=== PATIENT | male | born 1995 | race Asian ===

== ENCOUNTER 2016-09-22 11:34 | Emergency (ER) | payer OTHER ==
[~2016-09-22] VITALS: Ht 172.7 cm; Wt 77.9 kg
[2016-09-22 11:42] VITALS: TEMP 36.5; Ht 172.7 cm; Wt 77.9 kg
[2016-09-22] MEDS ORDERED: MoRPHine SULFATE 4 MG/ML 1 ML CARP\\VIAL IV STA (11:56)
[2016-09-22] MEDS ORDERED: SODIUM CHLORIDE 0.9% 1000ML 1,000 ML IV STA (11:56)
[2016-09-22] MEDS ORDERED: ONDANSETRON INJ 2 MG/ML 2 ML VIAL IV STA (11:56)
--- NOTE | 2016-09-22 12:02 | EMERGENCY ROOM VISIT NOTE ---
History First contact with patient: 11:47 Chief Complaint: VOMITING Stated Complaint: VOMITING, FEVER, STOMACH PAINS History of Present Illness The patient is a 21 year old male who presents to the Emergency Room via private vehicle with complaints of "vomiting, fever, stomach pains". The patient states that yesterday around 8 PM he was at home and woke up from a nap experiencing severe right upper quadrant abdominal pain and headache. He then vomited twice. He has had this same chronologic episode for 5 times since 8 PM last evening. There has been associated body aches and chills. The headache is rated as a 10/10, but the patient notes she has a long headache history and this is a typical migraine for him which he points to the left side of his head in the occipital region as its location. In regard to the abdominal pain, he points to the right upper quadrant and states it feels like a "hot ball of lead ". In his right upper quadrant. He rates this pain as an 8-9/10. He has tried Tylenol around 2:30 AM without relief. He has not had and eat since last night. The patient does not have any history of gallbladder issues in the past. The patient did receive his flu shot and he notes that his remained does have the same symptoms as he has today. The patient denies any hematemesis or blood in the stool. There is no associated cough. He denies any chest pain or shortness of breath. Review of Systems A complete 10-point Review of Systems was discussed with the patient, with pertinent positives and negatives listed in the History of Present Illness. All remaining Review of Systems questions can be considered negative unless otherwise specified. Past Medical/Surgical History Medical Problems: (1) Migraines Family History No pertinent family history Unremarkable Social History Smoking Status: Never Smoker Alcohol Use: occasionally Drug Use: none Marital Status: single Housing Status: lives with roommate Occupation Status: employed, [employer] student Current/Historical Medications No Active Prescriptions or Reported Meds Allergies Coded Allergies: No Known Allergies (Unverified , 09/22/16) Physical Exam Vital Signs Date Time Temp Pulse Resp B/P Pulse Ox O2 Delivery O2 Flow Rate FiO2 09/22/16 18:07 72 20 122/72 97 09/22/16 16:54 72 20 109/54 97 Room Air 09/22/16 15:07 90 20 111/63 98 Room Air 09/22/16 13:05 92 20 128/62 98 Room Air 09/22/16 12:08 89 20 124/67 98 Room Air 09/22/16 11:42 36.5 127 18 122/61 100 Room Air Physical Exam VITAL SIGNS - Vital signs and nursing notes were reviewed. Patient is afebrile , normotensive, he is tachycardic at a rate of 127 bpm, but he is saturating well on room air at 100%. GENERAL -21-year-old male appearing his stated age who is in no acute distress. Communicates well with provider and answers questions appropriately. SKIN - Without rashes. HEAD - NC/AT. EYES - PERRL with EOMI bilaterally. Sclera anicteric. Palpebral conjunctiva pink and moist with no injection noted. EARS - No deformities of external structures noted on gross examination bilaterally. No hemotympanum. External auditory canals without discharge or otorrhea. Tympanic membranes pearly lundberg without retraction or bulging. No fluid or purulent material visualized behind the TM. Handle of malleus, umbo, cone of light, pars tensa/flaccid all easily visualized. NOSE - Midline and without cyanosis. No epistaxis or purulent drainage noted. Septum midline without deviation or septal hematoma noted. MOUTH/OROPHARYNX - Without perioral cyanosis. Buccal mucosa pink and moist and without leukoplakia. Tongue midline with equal elevation of palate bilaterally. No tonsillar hypertrophy, erythema, or exudates noted. Fair dentition noted. NECK - Neck with FROM. Supple to palpation. No lymphadenopathy noted. No nuchal rigidity. There is no signs of meningitis or encephalitis upon exam. LUNGS - Chest wall symmetric without accessory muscle use, intercostals retractions, or central cyanosis. Normal vesicular breath sounds CTA B/L. No wheezes, rales, or rhonchi appreciated. CARDIAC - RRR with S1/S2. No murmur, rubs, or gallops appreciated. ABDOMEN - Abdominal contour without pulsations or visible masses. BS normoactive all four quadrants. There is right upper quadrant tenderness. The patient is flexing his abdominal muscles during the exam. The abdomen is otherwise soft and nonrigid. There is no tenderness in the right lower quadrant or left upper quadrant. There is slight tenderness in the left lower. No palpable masses, hepatosplenomegaly, or ascites noted. EXTREMITIES - No clubbing or peripheral cyanosis. No pretibial edema present. +5 /5 strength noted in UE/LE bilaterally. NEUROLOGIC - Cranial nerves II through XII grossly intact. Sensory intact to light touch throughout. PSYCH - A&Ox3 and cooperates fully with examiner. Pt is very pleasant and interacts well with examiner. Medical Decision & Procedures ER Provider Diagnostic Interpretation: ABDOMINAL ULTRASOUND, RIGHT UPPER QUADRANT HISTORY: Right upper quadrant abdominal pain.. COMPARISON: None. FINDINGS: Pancreas: Obscured by overlying bowel gas. Liver: Unremarkable. Gallbladder: No gallbladder wall thickening. No gallstones. CBD: 4 mm. Right kidney: No hydronephrosis. IMPRESSION: 1. Normal gallbladder. No gallstones. 2. The pancreas is obscured by overlying bowel gas. Electronically signed by: Brayan Orourke M.D. 09/22/2016 2:01 PM Dictated Date/Time: 09/22/2016 2:00 PM Laboratory Results 09/22/16 12:00 Red Blood Count 5.47, Mean Corpuscular Volume 85.7, Mean Corpuscular Hemoglobin 29.8, Mean Corpuscular Hemoglobin Concent 34.8, Mean Platelet Volume 8.9, Neutrophils (%) (Auto) 92.2, Lymphocytes (%) (Auto) 2.7, Monocytes (%) (Auto) 4.7, Eosinophils (%) (Auto) 0.1, Basophils (%) (Auto) 0.1, Neutrophils # (Auto) 9.50, Lymphocytes # (Auto) 0.28, Monocytes # (Auto) 0.48, Eosinophils # (Auto) 0.01, Basophils # (Auto) 0.01 09/22/16 12:00 Test 09/22/16 12:00 09/22/16 13:05 White Blood Count 10.30 K/uL (4.8-10.8) Red Blood Count 5.47 M/uL (4.7-6.1) Hemoglobin 16.3 g/dL (14.0-18.0) Hematocrit 46.9 % (42-52) Mean Corpuscular Volume 85.7 fL (80-100) Mean Corpuscular Hemoglobin 29.8 pg (25-34) Mean Corpuscular Hemoglobin Concent 34.8 g/dl (32-36) Platelet Count 310 K/uL (130-400) Mean Platelet Volume 8.9 fL (7.4-10.4) Neutrophils (%) (Auto) 92.2 % Lymphocytes (%) (Auto) 2.7 % Monocytes (%) (Auto) 4.7 % Eosinophils (%) (Auto) 0.1 % Basophils (%) (Auto) 0.1 % Neutrophils # (Auto) 9.50 K/uL (1.4-6.5) Lymphocytes # (Auto) 0.28 K/uL (1.2-3.4) Monocytes # (Auto) 0.48 K/uL (0.11-0.59) Eosinophils # (Auto) 0.01 K/uL (0-0.5) Basophils # (Auto) 0.01 K/uL (0-0.2) RDW Standard Deviation 38.8 fL (36.4-46.3) RDW Coefficient of Variation 12.3 % (11.5-14.5) Immature Granulocyte % (Auto) 0.2 % Immature Granulocyte # (Auto) 0.02 K/uL (0.00-0.02) Anion Gap 11.0 mmol/L (3-11) Est Creatinine Clear Calc Drug Dose 112.1 ml/min Estimated GFR () 123.3 Estimated GFR (Non- 106.4 BUN/Creatinine Ratio 24.0 (10-20) Calcium Level 9.1 mg/dl (8.5-10.1) Total Bilirubin 1.6 mg/dl (0.2-1) Aspartate Amino Transf (AST/SGOT) 20 U/L (15-37) Alanine Aminotransferase (ALT/SGPT) 27 U/L (12-78) Alkaline Phosphatase 81 U/L (45-117) Total Creatine Kinase 290 U/L (39-308) Total Protein 7.7 gm/dl (6.4-8.2) Albumin 4.4 gm/dl (3.4-5.0) Globulin 3.3 gm/dl (2.5-4.0) Albumin/Globulin Ratio 1.3 (0.9-2) Amylase Level 44 U/L (25-115) Lipase 109 U/L (73-393) Influenza Type A Antigen Neg for Influ A (NEG) Influenza Type B Antigen Neg for Influ B (NEG) Medications Administered Medications (Trade) Dose Ordered Sig/Gatito Route Start Time Stop Time Status Last Admin Dose Admin Sodium Chloride (Nss 1000ml) 1,000 ml @ 999 mls/hr Q1H1M STAT IV 09/22/16 11:56 09/22/16 12:56 DC 09/22/16 12:03 999 MLS/HR Morphine Sulfate (MoRPHine SULFATE INJ) 4 mg NOW STAT IV 09/22/16 11:56 09/22/16 11:58 DC 09/22/16 12:03 4 MG Ondansetron HCl (Zofran Inj) 4 mg NOW STAT IV 09/22/16 11:56 09/22/16 11:58 DC 09/22/16 12:02 4 MG Ketorolac Tromethamine (Toradol Inj) 30 mg STK-MED ONCE .ROUTE 09/22/16 16:58 09/22/16 16:59 DC 09/22/16 17:02 30 MG Medical Decision Patient was evaluated as above. After obtaining a thorough history and physical examination IV access was obtained and a CBC, CMP, influenza swab, 1 L normal saline as well as a right upper quadrant ultrasound. The patient is presenting with symptoms identical to when his roommate is experiencing which I feel is likely is a viral gastroenteritis. The patient may also have acute cholecystitis based upon exam or pancreatitis therefore appropriate workup began. CBC did not reveal any leukocytosis or anemia. Slight elevation of neutrophils. CMP didn't reveal any electrolyte abnormality. The BUN was elevated which I believe is secondary to dehydration. Total bilirubin was elevated at 1.6. These findings were discussed with the patient. Flu was negative. Right upper quadrant ultrasound was unremarkable. Patient was reevaluated and noted he was feeling much better and the abdominal pain at subsided. He stated that he has a headache that is not the worst headache of his life but is similar to previous migraines. The pain is in the same location. I gave him 30 mg of Toradol after verifying he had not had any NSAIDs or renal impairment today. He was reevaluated and noted to be feeling much better. Patient felt that he was able to go home. I do not suspect any emergent or surgical nature to the patient's pain at this time. He was instructed to follow-up with [facility] regarding these findings. He was educated on worrisome symptoms in which to return. He had questions prior to discharge and was discharged home in good condition. In the evaluation and treatment of this patient following differential diagnoses were entertained: Cholecystitis, choledocholithiasis, pancreatitis, acute viral gastroenteritis, influenza, among others. Impression Primary Impression: Vomiting Additional Impressions: Right upper quadrant abdominal pain, Migraines Departure Information Dispostion Home / Self-Care Condition GOOD Prescriptions No Active Prescriptions or Reported Meds Referrals No Doctor, Assigned (PCP) Patient Instructions A Signature Page, My [facility] Additional Instructions You were seen in emergency department for right upper quadrant abdominal pain. Please drink plenty of fluids and rest. Imaging and blood work and has ruled out any emergent or surgical nature to this pain at this time. Please follow-up with [facility] regarding today's visit for recheck. Your bilirubin was slightly elevated today at 1.6. BUN was 24. These are nonemergent findings but should be followed up with your family doctor or [facility] as soon as possible. Please return to the emergency department with any new/concerning symptoms.
[2016-09-22 12:21] LABS: BASO % 0.1 %; BASO ABS # 0.01 K/uL (0-0.2); COMPLETE YES; EOS % 0.1 %; HEMATOCRIT 46.9 % (42-52); IG% 0.2 %; LYMPH % 2.7 %; LYMPH ABS # 0.28 K/uL (1.2-3.4); MEAN CELL VOLUME 85.7 fL (80-100); MEAN CORPUSCULAR HEMOGLOBIN 29.8 pg (25-34); MEAN CORPUSCULAR HGB CONC 34.8 g/dl (32-36); MEAN PLATELET VOLUME 8.9 fL (7.4-10.4); MONO % 4.7 %; NEUT % 92.2 %; PLATELET COUNT 310 K/uL (130-400); RED BLOOD COUNT 5.47 M/uL (4.7-6.1)
[2016-09-22 12:44] LABS: CALCIUM 9.1 mg/dl (8.5-10.1); POTASSIUM 3.7 mmol/L (3.5-5.1)
[2016-09-22 12:46] LABS: ALB/GLOB RATIO 1.3 (0.9-2)
--- NOTE | 2016-09-22 14:03 | DIAGNOSTIC IMAGING REPORT ---
ABDOMINAL ULTRASOUND, RIGHT UPPER QUADRANT HISTORY: Right upper quadrant abdominal pain.. COMPARISON: None. FINDINGS: Pancreas: Obscured by overlying bowel gas. Liver: Unremarkable. Gallbladder: No gallbladder wall thickening. No gallstones. CBD: 4 mm. Right kidney: No hydronephrosis. IMPRESSION: 1. Normal gallbladder. No gallstones. 2. The pancreas is obscured by overlying bowel gas. Electronically signed by: Brayan Orourke M.D. 09/22/2016 2:01 PM Dictated Date/Time: 09/22/2016 2:00 PM
[2016-09-22] MEDS ORDERED: KETOROLAC TROMETHAMINE 30 MG/ML VIAL ONE (16:58)
[2016-09-22] MEDS ORDERED: KETOROLAC TROMETHAMINE 30 MG/ML VIAL IV STA (16:59)
[2016-09-22 18:07] VITALS: BP 122/72; PULSE 72; O2SAT 97
== END 2016-09-22 18:09 | disposition home or self-care (01) ==
LOC: C.EDB 11:35 → C.EDC 18:09
DX: R11.10 Vomiting, unspecified (principal); R10.11 Right upper quadrant pain; G43.909 Migraine, unspecified, not intractable, without status migrainosus; E86.0 Dehydration

== ENCOUNTER 2017-01-19 13:33 | Emergency (ER) | payer OTHER ==
[~2017-01-19] VITALS: Ht 175.3 cm; Wt 81.2 kg
[2017-01-19 13:41] VITALS: BP 168/115; TEMP 36.6; Ht 175.3 cm; Wt 81.2 kg
[2017-01-19] MEDS ORDERED: XYLOCAINE 1%/SOD BICARB 20 ML VIAL INFIL ONE (14:00)
--- NOTE | 2017-01-19 14:13 | DIAGNOSTIC IMAGING REPORT ---
LEFT THUMB 3 VIEWS CLINICAL HISTORY: Left thumb pain status post trauma COMPARISON: None DISCUSSION: There is a nondisplaced oblique intra-articular fracture through the base of the distal phalanx. There is no dislocation. IMPRESSION: Nondisplaced oblique intra-articular fracture through the base of the distal phalanx Electronically signed by: Сергей Ortez M.D. 01/19/2017 2:12 PM Dictated Date/Time: 01/19/2017 2:11 PM
[2017-01-19] MEDS ORDERED: HYDR-5688 PO (15:32)
[2017-01-19 16:09] VITALS: PULSE 79; O2SAT 96
--- NOTE | 2017-01-19 21:31 | EMERGENCY ROOM VISIT NOTE ---
ED Visit Note First contact with patient: 13:44 Chief complaint: Right hand finger lacerations and left thumb pain HPI: This 21-year-old male presents for evaluation of a laceration of lacerations on his right little, ring, and long fingers as well as left thumb pain. The patient was at [employer] training this weekend. He and some other men were attempting to remove a large heavy box from a [employer] vehicle. The box was slippery due to the rain. It started to slide and he attempted to stop it. He sustained lacerations on his right long, ring, and little fingers. He states his left thumb was also jammed. Bleeding was controlled with pressure. He denies any numbness or tingling. No other complaints. Tetanus is believed to be up-to-date. Pain is 3/10. Right-hand dominant. Supplemental sheet was reviewed. Previous surgeries: None Medical history: Benign Current Medications: None Allergies: NKDA Tetanus: Within 10 years Family History: Noncontributory. Social History: member of [employer]. No tobacco use. Occasional EtOH use. REVIEW OF SYSTEM: HEENT: No dizziness, visual problems, hearing loss, or tinnitus. There is no difficulty swallowing and no oral lesions are present. PULMONARY: No cough, shortness of breath, sputum production or hemoptysis. CARDIOVASCULAR: No chest pain, palpitations, shortness of breath or peripheral edema. GASTROINTESTINAL: No diarrhea, constipation, nausea, vomiting, or abdominal pain. GENITOURINARY: No dysuria, frequency, urgency or nocturia. NEUROLOGIC: No weakness, muscle tenderness, epilepsy or history of neurological problems. MUSCULOSKELETAL: No history of joint tenderness/swelling. No history of arthritis or arthralgias. SKIN: No rashes or lesions. PSYCHIATRIC: No history of depression or mental illness. ENDOCRINE: No history of diabetes, thyroid disorders, or abnormal hair growth. Physical Exam: Vitals: Afebrile. Reviewed and filed in patient's chart General: Well-developed, well-nourished, young male, in no acute distress. Obvious discomfort. He is sitting on the bed. Alert and oriented. Skin: Warm and dry with good turgor. No rashes. No ecchymosis or erythema. The patient is not diaphoretic. No abrasions. The patient has a 1 cm laceration present on the tip of his right long finger pad. He has a superficial 1 cm skin abrasion on the dorsum of his ring finger will phalanx. There is also a 6 mm excoriation present on the flexor surface of his little finger PIP joint. Edema is present in the left thumb distal phalanx. Musculoskeletal: Has pain with palpation of the distal phalanx of the left thumb. There is intact motion to the IP joint but this does cause pain. No pain with palpation over the MCP joint. Intact function there. No pain with palpation over the rest of the left hand. Right hand evaluation reveals intact flexion and extension of each of the digits. FDS and FDP functions are clearly intact by isolation. No pain with palpation over the metacarpals or MCP joints. He does have discomfort with palpation of the other digits but it is mild. Neurologic: Gross sensation is intact across the hands and digits by soft touch. Data: Radiographic imaging obtained today of the left thumb shows a distal phalanx fracture with intra-articular extension. No significant displacement. Films were read by radiology. Impression: Left thumb nondisplaced intra-articular distal phalanx fracture. Right hand little, ring, and long finger lacerations Procedure: Informed oral consent was obtained for repair. Right long, ring, and little fingers were prepped with Betadine and draped with a sterile towel. Long finger was anesthetized using 4 mL 1% plain buffered lidocaine in a digital block. Thorough inspection was performed for all fingers. Ring and little finger lacerations are superficial and do not require anything other than cleansing and Triple Antibiotic ointment. The long finger pad injury has no foreign material. Thorough inspection was performed. Wound was irrigated using normal sterile saline under jet spray lavage. Wound was closed using 5-0 nylon. Excellent wound edge approximation was achieved. Hemostasis was achieved. Plan: Patient was educated regarding today's findings. Conservative care measures were discussed. Cleanse the wounds daily with soap and water and reapply a small amount of bacitracin. Ice and elevate intermittently as needed for discomfort. Tylenol and ibuprofen every 6 hours as needed for pain. Wound care handout was provided. Sutures out in 12 days. He may shower. Avoid soaking or swimming for two weeks. Return to the ER for any acute changes or signs of infection. The left thumb was splinted with a splint. He'll keep this in place at all times other than bathing. Follow-up with his orthopedist to be sure the intra-articular fragment has not shifted or migrated. Avoid any heavy lifting. He will need to have modified duty for the [employer]. He was reassured that I do not suspect tendon rupture or laceration. Problem List Medical Problems: (1) Migraines Status: Chronic Current/Historical Medications Scheduled PRN Hydrocodone/Acetaminophen 5MG/325MG ([place] 5MG/325MG), 1-2 TABLET PO Q6 PRN for Pain Allergies Coded Allergies: No Known Allergies (Unverified , 01/19/17) Vital Signs Date Time Temp Pulse Resp B/P Pulse Ox O2 Delivery O2 Flow Rate FiO2 01/19/17 16:09 79 16 96 01/19/17 13:41 36.6 82 18 168/115 97 Room Air Departure Information Impression Primary Impression: Laceration of finger of right hand Additional Impression: Fracture of thumb, closed Dispostion Home / Self-Care Prescriptions Hydrocodone/Acetaminophen 5MG/325MG ([place] 5MG/325MG) Tab 1-2 TABLET PO Q6 Y for Pain, #12 TAB For Initial Treatment Prov: Hu Hernández,P.A. 01/19/17 Forms WORK / SCHOOL INSTRUCTIONS, HOME CARE DOCUMENTATION FORM, Days to leave dressing on: 1 Clean wound with;: soap and water Number of times/day to clean wound: 1 Coat wound with: antibiotic ointment Suture removal in how many days: 12 MOTRIN USE, TYLENOL USE, WOUND CARE INSTRUCTIONS, IMPORTANT VISIT INFORMATION Patient Instructions My [facility] Additional Instructions Cleanse the wounds daily with soap and water Avoid swimming or soaking for 2 weeks you may shower and wash your hands Tylenol and Motrin every 6 hours as needed for discomfort Sutures out in 12 days Return to the ED for any acute changes or signs of infection. Keep the left thumb splint in place at all times other than bathing Follow-up with your PCP for orthopedic referral for your left thumb Ice and elevate the thumb frequently to reduce pain and swelling [place] one to 2 tablets every 6 hours as needed for severe pain-no driving Problem Qualifiers
== END 2017-01-19 16:11 | disposition home or self-care (01) ==
LOC: C.EDB 13:34 → C.EDD 16:11
DX: S62.502A Fracture of unspecified phalanx of left thumb, initial encounter for closed fracture (principal); S61.212A Laceration without foreign body of right middle finger without damage to nail, initial encounter; S61.214A Laceration without foreign body of right ring finger without damage to nail, initial encounter; S61.216A Laceration without foreign body of right little finger without damage to nail, initial encounter; W01.0XXA Fall on same level from slipping, tripping and stumbling without subsequent striking against object, initial encounter

== ENCOUNTER 2017-06-06 02:59 | Emergency (ER) | payer OTHER ==
[~2017-06-06] VITALS: Ht 175.3 cm; Wt 80.8 kg
[~2017-06-06 02:59] MED LIST: HYDR-5688 PO
[2017-06-06 03:09] VITALS: Ht 175.3 cm; Wt 80.8 kg
[2017-06-06] MEDS ORDERED: KETOROLAC TROMETHAMINE 60 MG/2 ML VIAL IM STA (03:29)
[2017-06-06] MEDS ORDERED: DIAZEPAM 5MG TAB PO STA (03:29)
--- NOTE | 2017-06-06 05:38 | EMERGENCY ROOM VISIT NOTE ---
History First contact with patient: 03:12 Chief Complaint: BACK PAIN Stated Complaint: LOWER BACK PAINS History of Present Illness The patient is a 22 year old male who presents to the Emergency Room with complaints of left low back pain which started this morning. The patient states that he has had issues with spasms in his low back in the past. He states that he has had spasms in the left lower back all day. He has had difficulty sleeping due to the pain. He is unable to find a comfortable position. The pain does not radiate anywhere. He denies any numbness/weakness of the legs, urinary symptoms or bowel/bladder incontinence. He rates his discomfort a 7/10. He has not taken any medication for the pain. Review of Systems A complete 10 point review of systems was reviewed with the patient with pertinent positives and negatives as per history of present illness. All else were negative. Past Medical/Surgical History Medical Problems: (1) Migraines Family History No pertinent family history Social History Smoking Status: Never Smoker Alcohol Use: occasionally Drug Use: none Marital Status: single Housing Status: lives with roommate Occupation Status: employed, [employer] student Current/Historical Medications No Active Prescriptions or Reported Meds Physical Exam Vital Signs Date Time Temp Pulse Resp B/P (MAP) Pulse Ox O2 Delivery O2 Flow Rate FiO2 06/06/17 05:45 37.1 80 14 117/57 97 06/06/17 04:40 80 14 117/57 97 Room Air 06/06/17 03:09 37.1 94 18 113/54 97 Room Air Physical Exam VITALS: Vitals are noted on the nurse's note and reviewed by myself. No abnormalities noted. GENERAL: This is a 22-year-old male, in no acute distress, nondiaphoretic, well- developed well-nourished. SKIN: The skin was without rashes, erythema, edema, or bruising. EYES: Pupils equal round and reactive to light and accommodation. NECK: Supple without nuchal rigidity. HEART: Regular rate and rhythm without murmurs gallops or rubs. LUNGS: Clear to auscultation bilaterally without wheezes, rales or rhonchi. ABDOMEN: Soft, nontender to palpation. MUSCULOSKELETAL: No muscle atrophy, erythema, or edema noted of the back. There is no tenderness over the lumbar spinous processes. The left lumbar paraspinal muscles are very firm and tender to palpation. The patient is slow to move around. Negative straight leg raise test. Strength 5/5 in bilateral lower extremities. NEURO: Patient was alert and oriented to person place and time. Normal sensation to light and sharp touch. Deep tendon reflexes 2+ in the lower extremities. Dorsalis pedis pulse 2+ bilaterally. Medical Decision & Procedures Medications Administered Medications (Trade) Dose Ordered Sig/Gatito Route Start Time Stop Time Status Last Admin Dose Admin Diazepam (Valium Tab) 5 mg NOW STAT PO 06/06/17 03:29 06/06/17 03:30 DC 06/06/17 03:39 5 MG Ketorolac Tromethamine (Toradol Inj) 60 mg NOW STAT IM 06/06/17 03:29 06/06/17 03:30 DC 06/06/17 03:39 60 MG ED Course The patient was evaluated as above. Patient was medicated with 5 mg Valium and 60 mg Toradol IM. Patient was reevaluated and felt much better. He was able to move without much pain at this time. Discharge instructions were reviewed with the patient. The patient verbalized understanding of my assessment and treatment plan and was discharged home in good condition. Medical Decision Differential diagnosis includes cauda equina syndrome, cord compression, disc herniation, muscle spasm, lumbar strain, epidural abscess, malignancy, transverse myelitis, urinary tract infection, colitis, diverticulitis, kidney stone, among others. The patient is a 22-year-old male who presents today complaining of left lower back pain. Exam is consistent with a lumbar muscle spasm. Patient was given Valium and Toradol with significant relief of symptoms. There is no tenderness over the lumbar spinous processes and I do not feel that imaging is necessary. Conservative measures were discussed with the patient. He was encouraged to follow-up with his primary care provider. Based on the patient's presentation and work up, I feel the patient is stable for outpatient treatment. The patient was educated to return to the emergency department for any worsening of their current condition or new/concerning symptoms. He will follow up with his PCP. Medication Reconcilliation Current Medication List: was personally reviewed by me Blood Pressure Screening Patient's blood pressure: Normal blood pressure Impression Primary Impression: Spasm of lumbar paraspinous muscle Departure Information Dispostion Home / Self-Care Condition GOOD Prescriptions No Active Prescriptions or Reported Meds Referrals No Doctor, Assigned (PCP) Patient Instructions My [facility] Additional Instructions Naproxen 2 tabs twice daily. For pain control, you can use the following [id number] medicines (if >12 yo): - Regular strength (325mg/tab) Tylenol (acetaminophen) 2 tabs every 4-6 hours as needed. Do not exceed 12 tablets in a 24 hour period. Avoid taking more than 4 grams (4000 mg) of Tylenol per day. This includes any other sources of acetaminophen you may take on a regular basis. Follow-up with your primary care provider this week. Return to the emergency department for worsening pain, numbness/weakness of the legs, bowel/bladder incontinence or any other new/concerning symptoms.
[2017-06-06 05:45] VITALS: BP 117/57; PULSE 80; TEMP 37.1; O2SAT 97
== END 2017-06-06 05:58 | disposition home or self-care (01) ==
LOC: C.EDB 03:00
DX: M62.830 Muscle spasm of back (principal)

== ENCOUNTER 2017-08-17 03:09 | Emergency (ER) | payer OTHER ==
[~2017-08-17] VITALS: Ht 175.3 cm; Wt 85.0 kg
[2017-08-17 03:11] VITALS: TEMP 36.6; Ht 175.3 cm; Wt 85.0 kg
[2017-08-17] MEDS ORDERED: IBUPROFEN 800 MG TAB PO STA (03:35)
--- NOTE | 2017-08-17 03:38 | EMERGENCY ROOM VISIT NOTE ---
History Report prepared by Scribe: Kirsten Pederson Under the Supervision of: Dr. Krunal See D.O. First contact with patient: 03:22 Chief Complaint: BACK PAIN Stated Complaint: BACK SPASMS History of Present Illness The patient is a 22 year old male who presents to the Emergency Room with complaints of worsening back pain for the past few days. He rates his discomfort as a 10/10 in severity. Tonight the pain became so severe that he was unable to sleep. He denies any recent injuries or trauma. He reports he has been seen here in the past for back spasms. He denies any issues moving his legs. He denies any urinary symptoms or saddle anesthesia. Source of History: patient Onset: past few days [place] Position: back Symptom Intensity: 10/10 Timing: worsening Associated Symptoms: No urinary symptoms Review of Systems See HPI for pertinent positives and negatives. A total of ten systems were reviewed and were otherwise negative. Past Medical & Surgical Medical Problems: (1) Migraines Family History No pertinent family history Social History Smoking Status: Never Smoker Alcohol Use: occasionally Drug Use: none Marital Status: single Housing Status: lives with roommate Occupation Status: employed, [employer] student Current/Historical Medications No Active Prescriptions or Reported Meds Allergies Coded Allergies: No Known Allergies (Unverified , 08/17/17) Physical Exam Vital Signs Date Time Temp Pulse Resp B/P (MAP) Pulse Ox O2 Delivery O2 Flow Rate FiO2 08/17/17 03:11 36.6 109 18 118/73 95 Room Air Physical Exam GENERAL: Awake, alert, well-appearing, in no distress HENT: Normocephalic, atraumatic. Oropharynx unremarkable. EYES: Normal conjunctiva. Sclera non-icteric. NECK: Supple. No nuchal rigidity. FROM. No JVD. RESPIRATORY: Clear to auscultation. CARDIAC: Regular rate, normal rhythm. Extremities warm and well perfused. Pulses equal. ABDOMEN: Soft, non-distended. No tenderness to palpation. No rebound or guarding. No masses. RECTAL: Deferred. MUSCULOSKELETAL: Chest examination reveals no tenderness. The back is symmetrical on inspection without obvious abnormality. Left lateral lumbar muscle spasm, no midline tenderness. Neurovascularly intact. There is no CVA tenderness to palpation. No joint edema. LOWER EXTREMITIES: Calves are equal size bilaterally and non-tender. No edema. No discoloration. NEURO: Normal sensorium. No sensory or motor deficits noted. SKIN: No rash or jaundice noted. Medical Decision & Procedures Medications Administered Medications (Trade) Dose Ordered Sig/Gatito Route Start Time Stop Time Status Last Admin Dose Admin Ibuprofen (Motrin Tab) 800 mg NOW STAT PO 08/17/17 03:35 08/17/17 03:37 DC 08/17/17 03:48 800 MG Cyclobenzaprine HCl (Flexeril Tab) 10 mg STK-MED ONCE .ROUTE 08/17/17 03:45 08/17/17 03:46 DC 08/17/17 03:48 10 MG ED Course 0332: The patient was evaluated in room B3. A complete history and physical exam was performed. 0335: Motrin 800 mg PO. 0345: Flexeril 10 mg PO. 0350: I reevaluated the patient. He is feeling well and resting comfortably. I discussed his discharge instructions and he verbalized complete understanding and agreement. Medical Decision The differential diagnoses considered include sprain, strain, herniated disc and muscle spasm. Patient resting in no distress I suspect that this is musculoskeletal back pain. Patient has no evidence that this is cauda equina syndrome patient is neurologically intact he has definite spasm in the left lower lumbar region. Patient will be treated with anti-inflammatories and muscle relaxer Medication Reconcilliation Current Medication List: was personally reviewed by me Blood Pressure Screening Patient's blood pressure: Normal blood pressure Blood pressure disposition: Did not require urgent referral Impression Primary Impression: Lumbar back pain Scribe Attestation The scribe's documentation has been prepared under my direction and personally reviewed by me in its entirety. I confirm that the note above accurately reflects all work, treatment, procedures, and medical decision making performed by me. Departure Information Dispostion Home / Self-Care Prescriptions Cyclobenzaprine Hcl (FLEXERIL) 10 Mg Tab 10 MG PO TID Y for Muscle Spasms, #21 TAB Prov: Krunal See, DO 08/17/17 Ibuprofen (Motrin) 800 Mg Tab 800 MG PO Q8H Y for Pain for 5 Days, #15 TAB Prov: Krunal See, DO 08/17/17 Referrals No Doctor, Assigned (PCP) Patient Instructions Back Pain - [facility], [facility] Additional Instructions Follow-up primary care physician one to 2 days. Take Motrin Flexeril. Return for increased pain difficulty walking or any concerns
[2017-08-17] MEDS ORDERED: CYCLOBENZAPRINE HCL 10 MG TAB ONE (03:45)
[2017-08-17] MEDS ORDERED: IBUP-1428 PO (04:16)
[2017-08-17] MEDS ORDERED: CYCL10TA6 PO (04:16)
[2017-08-17 04:40] VITALS: BP 101/64; PULSE 104; O2SAT 97
[2017-08-17] MEDS ORDERED: CYCLOBENZAPRINE HCL 5 MG TAB PO ONE (09:00)
== END 2017-08-17 04:40 | disposition home or self-care (01) ==
LOC: C.EDB 03:10
DX: M54.5 Low back pain (principal)

== ENCOUNTER 2018-01-09 01:27 | Emergency (ER) | payer BC ==
[~2018-01-09] VITALS: Ht 175.3 cm; Wt 84.0 kg
[2018-01-09 01:32] VITALS: TEMP 36.9; Ht 175.3 cm; Wt 84.0 kg
[2018-01-09] MEDS ORDERED: KETOROLAC TROMETHAMINE 30 MG/ML VIAL IV STA (01:41)
[2018-01-09] MEDS ORDERED: DiphenhydrAMINE HCL 50 MG/ML VIAL IV STA (01:41)
[2018-01-09] MEDS ORDERED: PROCHLORPERAZINE 5 MG/ML 2 ML VIAL IV STA (01:41)
[2018-01-09] MEDS ORDERED: SODIUM CHLORIDE 0.9% 1000ML 2,000 ML IV STA (01:41)
[2018-01-09] MEDS ORDERED: DEXAMETHASONE **PF** INJ 10 MG/ML VIAL IV ONE (01:45)
--- NOTE | 2018-01-09 02:03 | EMERGENCY ROOM VISIT NOTE ---
History Report prepared by Krisibciro: Derek Diaz Under the Supervision of: Dr. Pablo Ziegler M.D. First contact with patient: 01:37 Chief Complaint: HEADACHE Stated Complaint: SEVERE MIGRAINE,COUGHING UP BLOOD,DIZZY History of Present Illness The patient is a 22 year old male who presents to the Emergency Room with complaints of persistent headache since this morning. He has a history of migraines. He states this headache is similar to his previous headaches. He denies any dehydration. He reports light and noise sensitivity. He has been hospitalized in the past for migraines. He denies any falls or head injuries. Source of History: patient Onset: since this morning Position: head Quality: ache Timing: other (persistent) Note: Notes light and noise sensitivity. Denies any falls or head injuries. Review of Systems See HPI for pertinent positives & negatives. A total of 10 systems reviewed and were otherwise negative. Past Medical & Surgical Medical Problems: (1) Migraines Family History FHx: cancer No pertinent family history Social History Smoking Status: Never Smoker Alcohol Use: occasionally Drug Use: none Marital Status: single Housing Status: lives with roommate Occupation Status: employed, [employer] student Current/Historical Medications No Active Prescriptions or Reported Meds Allergies Coded Allergies: No Known Allergies (Unverified , 01/09/18) Physical Exam Vital Signs Date Time Temp Pulse Resp B/P (MAP) Pulse Ox O2 Delivery O2 Flow Rate FiO2 01/09/18 06:14 65 16 120/65 98 01/09/18 05:00 65 16 126/65 98 Room Air 01/09/18 03:08 86 18 127/70 97 Room Air 01/09/18 01:32 36.9 117 40 138/88 98 Room Air Physical Exam GENERAL: Patient is upset appearing and in mild distress. HEAD: No acute trauma, normocephalic atraumatic ENT: Mucous membranes moist, no nasal congestion. EYES: Equal/Reactive Bilaterally, No scleral icterus, Normal ROM NECK: No nuchal rigidity, no meningismus, trachea is midline, full ROM LUNGS: No dyspnea. Clear to auscultation and equal bilaterally. No wheeze, no rhonchi. Tachypneic HEART: Tachycardic rate and rhythm. No murmurs, rubs, gallops appreciated. ABDOMEN: Soft, nontender, bowel sounds positive, no masses appreciated, no peritonitis. BACK: No midline tenderness, no CVA tenderness EXTREMITIES: Normal motion all extremities, no cyanosis, no edema. NEUROLOGIC: Awake, Alert, Oriented, no acute motor or sensory deficits, no focal weakness, cranial nerves grossly intact. SKIN: No rash, no jaundice, no diaphoresis. Medical Decision & Procedures Medications Administered Medications (Trade) Dose Ordered Sig/Gatito Route Start Time Stop Time Status Last Admin Dose Admin Sodium Chloride 2,000 ml @ 999 mls/hr Q2H1M STAT IV 01/09/18 01:41 01/09/18 03:41 DC 01/09/18 01:41 999 MLS/HR Ketorolac Tromethamine (Toradol Inj) 30 mg NOW STAT IV 01/09/18 01:41 01/09/18 01:42 DC 01/09/18 01:52 30 MG Diphenhydramine HCl (Benadryl Inj) 50 mg NOW STAT IV 01/09/18 01:41 01/09/18 01:42 DC 01/09/18 01:51 50 MG Prochlorperazine Edisylate (Compazine Inj) 5 mg NOW STAT IV 01/09/18 01:41 01/09/18 01:42 DC 01/09/18 01:51 5 MG Dexamethasone Sodium Phosphate (Dexamethasone Inj Pf) 10 mg NOW ONCE IV 01/09/18 01:45 01/09/18 01:46 DC 01/09/18 01:51 10 MG ED Course 0137: The patient was evaluated in room B10. A complete history and physical exam was performed. 0254: I reassessed the patient at this time. He states his headache has resolved. He is feeling better. 0328: I reassessed the patient at this time. He is sleeping comfortably. 0452: I reassessed the patient at this time. The patient woke up and states that he is feeling better, but wants to sleep longer. 0730: I reassessed the patient at this time. I discussed the results and treatment plan with the patient. I answered all pertaining questions that he had. He expressed understanding and verbalized agreement. The patient will be discharged home. Medical Decision Differential: Headache, Migraine, Cluster Headache, Seizure, Meningitis, Sinusitis, CO exposure, ICH/SAH, Infectious, Tumor, Sinus Thrombosis, Arterial Dissection, amongst other pathologies entertained. 22 yr old male arrives in quite some distress complaining of gradually onset of acute exacerbation of his typical migraine symptoms. Admits this is similar to previous, is not worst headache of his life and he has no other systemic symptoms. Given how rapidly he improved, no further symptoms, normal exam and no neuro deficits I felt that imaging unnecessary, nor labs for that matter. He is not consistent with meningitis, other infectious, thrombosis, dissection, ICH, etc. He looks quite well and is comfortable. He was quite somnolent from above and suspect this is combination of medications plus finally feeling better after dealing with headache at home all day yesterday. Patient well, feeling better and comfortable with discharge. Head Trauma GCS Score: 15 Medication Reconcilliation Current Medication List: was personally reviewed by me Blood Pressure Screening Patient's blood pressure: Normal blood pressure Impression Primary Impression: Headache Additional Impression: Migraine Scribe Attestation The scribe's documentation has been prepared under my direction and personally reviewed by me in its entirety. I confirm that the note above accurately reflects all work, treatment, procedures, and medical decision making performed by me. Departure Information Dispostion Home / Self-Care Prescriptions No Active Prescriptions or Reported Meds Referrals No Doctor, Assigned (PCP) Patient Instructions ED Headache Migraine, My [facility] Problem Qualifiers
[2018-01-09 06:14] VITALS: BP 120/65; PULSE 65; O2SAT 98
== END 2018-01-09 06:14 | disposition home or self-care (01) ==
LOC: C.EDB 01:28
DX: G43.909 Migraine, unspecified, not intractable, without status migrainosus (principal); Z80.9 Family history of malignant neoplasm, unspecified

== ENCOUNTER 2020-04-02 06:08 | Inpatient (IN) ==
[2020-04-02 06:44] LABS: Basophils # (auto) 0.02 K/uL (0-0.2); Basophils % (auto) 0.3 %; Eosinophils # (auto) 0.16 K/uL (0-0.5); Eosinophils % (auto) 2.4 %; Hemoglobin 17.2 g/dL (14.0-18.0); Immature Granulocytes # (auto) 0.01 K/uL (0.00-0.02); Immature Granulocytes % (auto) 0.1 %; Lymphocytes # (auto) 2.21 K/uL (1.2-3.4); Lymphocytes % (auto) 32.8 %; Mean Corpuscular Hemoglobin 30.2 pg (25-34); Mean Corpuscular Hgb Conc 34.4 g/dL (32-36); Mean Corpuscular Volume 87.9 fL (80-100); Mean Platelet Volume 8.7 fL (7.4-10.4); Monocytes # (auto) 0.51 K/uL (0.11-0.59); Monocytes % (auto) 7.6 %; Neutrophils # (auto) 3.82 K/uL (1.4-6.5); Neutrophils % (auto) 56.8 %; Platelet Count 456 K/uL (130-400); RDW Coefficient of Variation 13.9 % (11.5-14.5); RDW Standard Deviation 44.8 fL (36.4-46.3); Red Blood Count 5.69 M/uL (4.7-6.1); White Blood Count 6.73 K/uL (4.8-10.8)
[2020-04-02 06:45] LABS: Appearance Urine Clear (Clear); Bilirubin Urine Negative (Negative); Blood Urine Negative (Negative); Color Urine Yellow; Glucose Urine UA Negative (Negative); Ketones Urine Negative (Negative); Leukocyte Esterase Urine Negative (Negative); Nitrite Urine Negative (Negative); Protein Urine Negative (Negative); Specific Gravity Urine 1.021 (1.000-1.030); Urobilinogen Urine Negative (Negative)
[2020-04-02 07:02] LABS: Albumin Level 4.3 gm/dl (3.4-5.0); BUN Creatinine Ratio 8.4 (10-20); Calcium 8.6 mg/dl (8.5-10.1); Creatinine Clr Calc Pharmacy 93.2 ml/min; Est GFR (African American) 88.7; Est GFR (Non-African American) 76.5; Potassium 3.9 mmol/L (3.5-5.1)
[2020-04-02 07:04] LABS: Amphetamines+Metham, Urine Neg (Neg); Barbiturates, Urine Neg (Neg); Benzodiazepine, Urine Neg (Neg); Cocaine, Urine Neg (Neg); MDMA (Ecstacy), Urine Neg (Neg); Methadone, Urine Neg (Neg); Opiate, Urine Neg (Neg); Phencyclidine, Urine Neg (Neg)
[2020-04-02 07:12] LABS: Albumin Globulin Ratio 1.1 (0.9-2); Bilirubin,Total 0.6 mg/dl (0.2-1); Thyroid Stimulating Hormone 2.24 uIu/ml (0.300-4.500); Total Protein 8.3 gm/dl (6.4-8.2)
--- NOTE | 2020-04-02 07:18 | Emergency Department Note ---
Impression & Plan Suicidal ideation, Aggressive behavior of adult ED Provider Note NAME: NARGIS LINO AGE: 24 SEX: M ARRIVES VIA: [employer] INFORMANT: Patient, ED PROVIDER(S): Geo Cadena MD CHIEF COMPLAINT: Suicidal ideation PLAN: Disposition: Psychiatric admission MEDICAL DECISION MAKING: The patient is a 24-year-old gentleman who presents emergency department accompanied by police (4 officers) after being pulled over for a DUI and being brought for a legal alcohol blood draw but following this and returning to the police vehicle he then made suicidal statements saying he is not going to be alive in a week saying he would kill himself and had given up and wanted to . A 302 warrant was completed and the patient was brought back for mental health evaluation. On arrival the patient is agitated appearing, hypertensive and tachycardic in the setting agitation. Upon evaluation he has a flat/volatile appearing affect with deep eye contact repeatedly clenching his fists. However he also maintains a respectful tone answering questions with sir and being cooperative with physical exam. He relates that he does not need psychiatric help and that he should not have said what he had said. However, he initially c onfirmed that he did mean what he said but then is evasive and says that he is just angry and proceeds to perseverate on being angry. He relates that he is angry at the government as he reports he just left the . 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 He is angry that his mother is sick in [place] (where he is from) though he lives locally and wants to leave to be with her. He also wants to "make things better with his girlfriend" which she says he got a fight with her last night. When asked if we could contact her or any friend or family member he refuses. He is aware that a 302 warrant was completed and that he l ikely will not be able to leave but is anxious to know when that decision will be made. I did explained to him that we would need to wait until his alcohol level metabolizes to make a final official decision but I did explain that the likelihood was that he would require inpatient psychiatric admission. Patient denies any fevers, chills, cough, congestion, nausea, vomiting, diarrhea, urinary symptoms. Physical exam is unremarkable. WBC and H/H within normal limits. Platelets 456, nonspecific. Chemistry without metabolic acidosis. AST slightly elevated at 46, nonspecific. Otherwise electrolytes and LFTs unremarkable. UA negative for infection. Patient's blood alcohol was 190. Therefore will require at least several hours to metabolize to clinical sobriety. The patient was reevaluated after several hours and he was determined to be clinically sober and was medically cleared. He was able to speak fluently and coherently at this time but he still remained quite aggressive and would refuse to be forthcoming regarding his emotional state and his suicidal comments. He relates that he "said it because he was frustrated". However he perseverated on being angry and not trusting the government and doctors. We did ask the patient if he would allow us to speak to a friend or family member to help further clarify how he has been doing and to help ensure his safety and ability to safety plan. However he adamantly refuses this and would frequently clench his fists. Given the patient's refusal to be forthcoming to allow proper safety assessment and safety planning in the setting of his demonstrated poor ability to control his anger and suspected volatility there is sufficient concern for his safety and potentially that of others. Therefore, the patient was informed that his 302 warrant would be upheld and emphasized with have he best interests in mind. This certainly did result in additional emotional/verbal anger from the patient. However when he was reevaluated se veral hours later the patient had calmed and was able to express insight into our concerns and was apologetic for how he behaved. At this time he did express his willingness to "go along with recommendations." He did request the option to be admitted voluntarily. However I did explain that this opportunity was no longer available and he previously was not cooperative and has only changed his mind once his 302 was upheld. At this time, he did take this news appropriately and did not become angry. He did however ask that is there any way that he could be discharged by Friday expressing that he needs to look after his 14-year-old sister as currently his mother is sick in [place] and his father is working and looking after his mother. The sincerity behind his comments is unclear as he did not allow us to contact any family. However I did let the patient know that it was appreciated how he has subsequently been calm and cooperative and now showing insight into the fact that he does need help. I encouraged him to continue in this manner in order to optimize any treatment he receives. The patient was again reevaluated after unfortunately he was declined for acuity (despite his improvement) from several inpatient facilities. I did let him know that his observation may extend into tomorrow however we do hope that a bed potentially opens up here. He did express understanding related to this. He briefly did become near tearful near tearful again requesting to be able to be released by Friday as he had planned to drive with his sister to [place] to be with his mother. He relates that he was informed that she has liver failure and he doesn't want to miss time with her. I did emphasize to the patient that he is welcome to contact his parents or any friend ( including his girlfriend if it would help) or family member for support. He declined this saying this would add to his father's stress and cause more problems. He reports his roommate is out of town. He relates he thinks his girlfriend would be forgiving and come to be him but he feels it would be selfish of him to ask her as he knows she is stressed regarding her work. I encouraged him to let his RN know if he changes his mind. The patient continue to remain calm and cooperative. At no point did the patient require physical or chemical restraints. At the time of change of shift, the patient was signed out to Dr. Yeung with psychiatric placement pending. Triage Nursing notes reviewed and agree them. Additional history obtained from [facility] 302 warrant. Prior medical records reviewed Vital Signs: reviewed and remarkable for hypertension. Differential diagnosis: Mood disorder, infection, hypoglycemia, electrolyte abnormalities, cardiac sources, intracerebral event, toxicologic, trauma, neurologic, as well as other pathologies. ER treatment provided: See below. Laboratory studies: See below HPI: The patient is a 24-year-old gentleman who presents emergency department accompanied by police (4 officers) after being pulled over for a DUI and being brought for a legal alcohol blood draw but following this and returning to the police vehicle he then made suicidal statements saying he would kill himself and had given up and wanted to . A 302 warrant was completed and the patient was brought back for mental health evaluation. On arrival the patient is agitated appearing, hypertensive and tachycardic in the setting agitation. Upon evaluation he has a flat/volatile appearing affect with deep eye contact repeatedly clenching his fists. However he also maintains a respectful tone answering questions with sir and being cooperative with physical exam. He relates that he does not need psychiatric help and that he should not have said what he had said. However, he initially confirmed that he did mean what he said but then is evasive and says that he is just angry and proceeds to perseverate on being angry. He relates that he is angry at the government as he reports he just left the . 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 He is angry that his mother is sick in [place] (where he is from) though he lives locally and wants to leave to be with her. He also wants to "make things better with his girlfriend" which she says he got a fight with her last night. When asked if we could contact her or any friend or family member he refuses. He is aware that a 302 warrant was completed and that he likely will not be able to leave but is anxious to know when that decision will be made. I did explained to him that we would need to wait until his alcohol level metabolizes to make a final official decision but I did explain that the likelihood was that he would require inpatient psychiatric admission. Patient denies any fevers, chills, cough, congestion, nausea, vomiting, diarrhea, urinary symptoms. ROS: See above HPI for pertinent positives & negatives. A total of 10 systems reviewed and were otherwise negative. PAST MEDICAL HISTORY:See Below PAST SURGICAL HISTORY:See Below FAMILY HISTORY:See Below SOCIAL HISTORY:See Below HOME MEDICATIONS:See Below ALLERGIES:See Below VITALS:See Below PHYSICAL EXAMINATION: GENERAL: Awake, alert, angry-appearing, in no distress HENT: Normocephalic, atraumatic. Oropharynx unremarkable. EYES: Normal conjunctiva. Sclera non-icteric. NECK: Supple. No nuchal rigidity. FROM. No JVD. RESPIRATORY: Clear to auscultation. CARDIAC: Regular rate, normal rhythm. Extremities warm and well perfused. Pulses equal. ABDOMEN: Soft, non-distended. No tenderness to palpation. No rebound or guarding. No masses. RECTAL: Deferred. MUSCULOSKELETAL: Chest examination reveals no tenderness. The back is symmetrical on inspection without obvious abnormality. There is no CVA tenderness to palpation. No joint edema. LOWER EXTREMITIES: Calves are equal size bilaterally and non-tender. No edema. No discoloration. NEURO: Normal sensorium. No sensory or motor deficits noted. SKIN: No rash or jaundice noted. PSYCH: Flat/volatile appearing affect. Perseverates on his anger. Repeatedly clenching fists. Evasive when asked about SI/HI. Geo Cadena MD Past Med/Surg History Medical History Migraines (Chronic) Surgical History No history of previous surgery Social History Current Living Situation: Other Current Living Situation Comment: Roommates current occupational status: employed Feels Safe at Home: Yes Smoking Status: Never smoker Hx Alcohol Use: Yes Alcohol Intake Frequency: Rarely Hx Substance Use: No Allergies Allergies Allergy/AdvReac Type Severity Reaction Status Date / Time No Known Allergies Allergy Unverified 10/17/19 08:13 Home Meds Home Medications Medication Instructions Recorded Confirmed No Known Home Medications 10/17/19 04/02/20 Results & Data (ED) Vital Signs Vital Signs - 24 hr 04/02/20 06:24 04/02/20 09:38 04/02/20 11:15 Temperature 37.1 C Temperature Source Oral Pulse Rate 137 H Pulse Rate [Finger] 95 H 95 H Pulse Rhythm [Finger] Respiratory Rate 24 16 20 Respiratory Effort / Characteristics Non-Labored Non-Labored Spontaneous Respiratory Depth Normal Normal Respiratory Pattern Regular Regular Blood Pressure 174/139 H Blood Pressure [Left Arm] 103/48 L 157/96 H Blood Pressure Mean 150 Blood Pressure Mean [Left Arm] 66 116 Blood Pressure Position Sitting Blood Pressure Position [Left Arm] Pulse Oximetry 97 98 98 Oxygen Delivery Method Room Air Room Air Room Air Sepsis Recent Fever Within 48 Hours No Sepsis New/Unexplained Change in Mental Status No Sepsis Action Taken by Nursing No Action Required 04/02/20 18:56 Temperature Temperature Source Pulse Rate Pulse Rate [Finger] 106 H Pulse Rhythm [Finger] Regular Respiratory Rate 20 Respiratory Effort / Characteristics Non-Labored Spontaneous Respiratory Depth Normal Respiratory Pattern Regular Blood Pressure Blood Pressure [Left Arm] 177/101 H Blood Pressure Mean Blood Pressure Mean [Left Arm] 126 Blood Pressure Position Blood Pressure Position [Left Arm] Lying Pulse Oximetry 98 Oxygen Delivery Method Room Air Sepsis Recent Fever Within 48 Hours Sepsis New/Unexplained Change in Mental Status Sepsis Action Taken by Nursing Laboratory Data Attestation: I reviewed the patient's lab results. Result diagrams: 04/02/20 06:31 04/02/20 06:31 Lab Results 04/02/20 04/02/20 04/02/20 Range/Units 06:31 06:31 06:31 WBC 6.73 (4.8-10.8) K/uL RBC 5.69 (4.7-6.1) M/uL Hgb 17.2 (14.0-18.0) g/dL Hct 50.0 (42-52) % MCV 87.9 (80-100) fL MCH 30.2 (25-34) pg MCHC 34.4 (32-36) g/dL RDW Std Deviation 44.8 (36.4-46.3) fL RDW Coeff of Sam 13.9 (11.5-14.5) % Plt Count 456 H (130-400) K/uL MPV 8.7 (7.4-10.4) fL Immature Gran % (Auto) 0.1 % Neut % (Auto) 56.8 % Lymph % (Auto) 32.8 % [place] % (Auto) 7.6 % Eos % (Auto) 2.4 % Baso % (Auto) 0.3 % Neut # (Auto) 3.82 (1.4-6.5) K/uL Lymph # (Auto) 2.21 (1.2-3.4) K/uL [place] # (Auto) 0.51 (0.11-0.59) K/uL Eos # (Auto) 0.16 (0-0.5) K/uL Baso # (Auto) 0.02 (0-0.2) K/uL Immature Gran # (Auto) 0.01 (0.00-0.02) K/uL Sodium 143 (136-145) mmol/L Potassium 3.9 (3.5-5.1) mmol/L Chloride 111 H (98-107) mmol/L Carbon Dioxide 25 (21-32) mmol/L Anion Gap 7.0 (3-11) BUN 11 (7-18) mg/dl Creatinine 1.29 (0.6-1.4) mg/dl Est Cr Clr Drug Dosing 93.2 ml/min Est GFR ( Amer) 88.7 Est GFR (Non-Af Amer) 76.5 BUN/Creatinine Ratio 8.4 L (10-20) Glucose 110 H (70-99) mg/dl Calcium 8.6 (8.5-10.1) mg/dl Total Bilirubin 0.6 (0.2-1) mg/dl AST 46 H (15-37) U/L ALT 71 (12-78) U/L Alkaline Phosphatase 64 (45-117) U/L Total Protein 8.3 H (6.4-8.2) gm/dl Albumin 4.3 (3.4-5.0) gm/dl Globulin 4.0 (2.5-4.0) gm/dl Albumin/Globulin Ratio 1.1 (0.9-2) TSH 2.240 (0.300-4.500) uIu/ml Urine Color Urine Appearance (Clear) Urine pH (4.5-7.5) Ur Specific [place] (1.000-1.030) Urine Protein (Negative) Urine Glucose (UA) (Negative) Urine Ketones (Negative) Urine Blood (Negative) Urine Nitrite (Negative) Urine Bilirubin (Negative) Urine Urobilinogen (Negative) Ur Leukocyte Esterase (Negative) Salicylates < 1.7 L (2.8-20) mg/dl Urine Opiates Screen (Neg) Ur Methadone, Qual (Neg) Acetaminophen < 2 L (10-30) ug/ml Urine Barbiturates (Neg) Ur Phencyclidine (PCP) (Neg) U Amphetamin/Meth Scrn (Neg) MDMA (Ecstasy) Screen (Neg) U Benzodiazepines Scrn (Neg) Ur Cocaine Metabolite (Neg) U Marijuana (THC) Screen (Neg) Ethyl Alcohol mg/dL (0-3) mg/dl 04/02/20 04/02/20 04/02/20 Range/Units 06:31 06:35 06:35 WBC (4.8-10.8) K/uL RBC (4.7-6.1) M/uL Hgb (14.0-18.0) g/dL Hct (42-52) % MCV (80-100) fL MCH (25-34) pg MCHC (32-36) g/dL RDW Std Deviation (36.4-46.3) fL RDW Coeff of Sam (11.5-14.5) % Plt Count (130-400) K/uL MPV (7.4-10.4) fL Immature Gran % (Auto) % Neut % (Auto) % Lymph % (Auto) % [place] % (Auto) % Eos % (Auto) % Baso % (Auto) % Neut # (Auto) (1.4-6.5) K/uL Lymph # (Auto) (1.2-3.4) K/uL [place] # (Auto) (0.11-0.59) K/uL Eos # (Auto) (0-0.5) K/uL Baso # (Auto) (0-0.2) K/uL Immature Gran # (Auto) (0.00-0.02) K/uL Sodium (136-145) mmol/L Potassium (3.5-5.1) mmol/L Chloride (98-107) mmol/L Carbon Dioxide (21-32) mmol/L Anion Gap (3-11) BUN (7-18) mg/dl Creatinine (0.6-1.4) mg/dl Est Cr Clr Drug Dosing ml/min Est GFR ( Amer) Est GFR (Non-Af Amer) BUN/Creatinine Ratio (10-20) Glucose (70-99) mg/dl Calcium (8.5-10.1) mg/dl Total Bilirubin (0.2-1) mg/dl AST (15-37) U/L ALT (12-78) U/L Alkaline Phosphatase (45-117) U/L Total Protein (6.4-8.2) gm/dl Albumin (3.4-5.0) gm/dl Globulin (2.5-4.0) gm/dl Albumin/Globulin Ratio (0.9-2) TSH (0.300-4.500) uIu/ml Urine Color Yellow Urine Appearance Clear (Clear) Urine pH 5.0 (4.5-7.5) Ur Specific [place] 1.021 (1.000-1.030) Urine Protein Negative (Negative) Urine Glucose (UA) Negative (Negative) Urine Ketones Negative (Negative) Urine Blood Negative (Negative) Urine Nitrite Negative (Negative) Urine Bilirubin Negative (Negative) Urine Urobilinogen Negative (Negative) Ur Leukocyte Esterase Negative (Negative) Salicylates (2.8-20) mg/dl Urine Opiates Screen Neg (Neg) Ur Methadone, Qual Neg (Neg) Acetaminophen (10-30) ug/ml Urine Barbiturates Neg (Neg) Ur Phencyclidine (PCP) Neg (Neg) U Amphetamin/Meth Scrn Neg (Neg) MDMA (Ecstasy) Screen Neg (Neg) U Benzodiazepines Scrn Neg (Neg) Ur Cocaine Metabolite Neg (Neg) U Marijuana (THC) Screen Neg (Neg) Ethyl Alcohol mg/dL 190.0 H (0-3) mg/dl Blood Pressure Blood Pressure Findings: Elevated blood pressure Blood Pressure Disposition: elevated BP felt to be situational Discharge Plan Visit Data Chief Complaint: Mental Health Evaluation Stated Complaint: 302 ED Provider: Pernell Yeung Discharge Problem: Suicidal ideation, Aggressive behavior of adult Forms Stand Alone Forms: My [facility], Suicide Prevention Resources Prescriptions Prescriptions: No Action No Known Home Medications RF: 0
[2020-04-02 07:19] LABS: Acetaminophen < 2 ug/ml (10-30)
[2020-04-02 07:20] LABS: Salicylate < 1.7 mg/dl (2.8-20)
--- NOTE | 2020-04-03 00:13 | Emergency Department Note ---
ED Visit Note Patient is a 24-year-old male who was signed out to me awaiting placement. Patient was evaluated by Dr. bush and was medically cleared. He was initially brought in for DUI. At that time he became agitated and was making statements that he was going to kill himself. He was intoxicated at that time. He was monitored closely and clinically cleared. At that time he refused to talk with anybody or engage in any conversation. [address] bush[address] Bed search has ensued. He has been resting comfortably. Bed search has been suspended overnight. Patient will be signed out to Dr. Ziegler at the change of shift awaiting bed search to resume in the morning for possible placement of 302. .
--- NOTE | 2020-04-03 00:40 | Emergency Department Note ---
ED Visit Note ED Physician Sign Out Note: Signed out to me due to suspended bed search on 302 Warrant for Suicidal ideation with aggressive behavior. Patient sleeping soundly throughout the night. Signed out to Dr Clarke. Pablo Ziegler MD
--- NOTE | 2020-04-03 08:39 | Emergency Department Note ---
ED Visit Note Received pt in sign out. Patient excepted to 3 S. .
[2020-04-03] MEDS ORDERED: MAGNESIUM HYDROXIDE SUSP 30 ML UDC PO PRN (10:36)
[2020-04-03] MEDS ORDERED: ALUMINUM/MAGNESIUM SUSP 30 ML UDC PO PRN (10:36)
[2020-04-03] MEDS ORDERED: SODIUM CHLORIDE 0.65% NA SOLN 45 ML (OCEAN) PRN (10:36)
[2020-04-03] MEDS ORDERED: BISMUTH SUBSALICYLATE PER ML OMNICELL CHARGE PO PRN (10:36)
[2020-04-03] MEDS ORDERED: ACETAMINOPHEN 325 MG TAB PO PRN (10:36)
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
== END 2020-04-05 10:15 | disposition home or self-care (01) | DRG 880 ==
LOC: ED 06:08 → 3S 04-03 10:37